=== PATIENT | female | born 1960 | race Caucasian/White ===

== ENCOUNTER 2021-06-06 07:47 | Day surgery (SDC) | payer OTHER, SELFPAY ==
[~2021-06-06 07:47] MED LIST: HUM SUBQ; INSU100S22 SUBQ; METF1000 PO; OMEP40EC24 PO
[2021-06-06] MEDS ORDERED: fentaNYL citrate 0.05 MG/ML VIAL ONE (09:21)
[2021-06-06] MEDS ORDERED: diphenhydrAMINE 50 MG/ML VIAL ONE (09:21)
[2021-06-06] MEDS ORDERED: MIDAZOLAM 5 MG/5 ML VIAL ONE (09:21)
[2021-06-06] MEDS ORDERED: LIDOCAINE 2% 100 MG/5 ML UJET TP ONE ×2 (09:22→10:05)
[2021-06-06] MEDS ORDERED: MIDAZOLAM 2 MG/2 ML VIAL IVP ONE (10:05)
[2021-06-06] MEDS ORDERED: fentaNYL citrate 0.05 MG/ML VIAL IVP ONE (10:05)
== END 2021-06-06 11:07 | disposition home or self-care (01) ==
LOC: MDS 07:47 → MMU 08:31 → MDS 11:07
PROVIDERS: ATTEND Internal Medicine Gastroenterology
DX: Z12.11 Encounter for screening for malignant neoplasm of colon (principal); K63.5 Polyp of colon; E11.9 Type 2 diabetes mellitus without complications; Z98.51 Tubal ligation status; Z20.822 Contact with and (suspected) exposure to COVID-19
CPT/HCPCS: 45380; 87426; 88305; J2250; J3010; J1200